=== PATIENT | female | born 1945 ===

== ENCOUNTER 2017-09-10 15:55 | Emergency (ER) | payer MEDICARE, OTHER ==
[2017-09-10 16:06] VITALS: TEMP 98
[2017-09-10] MEDS ORDERED: Sodium Chloride 0.9% 1,000 ML IV STA (16:43)
--- NOTE | 2017-09-10 17:18 | ED PDOC ---
Hyperglycemia/Hypoglycemia Time Seen by Provider: 09/10/17 16:12 Chief Complaint (Nursing): Weakness/Neurological Deficit Chief Complaint (Provider): Low blood sugar History Per: Patient, Family History/Exam Limitations: no limitations Onset/Duration Of Symptoms: Hrs (today) Current Symptoms Are (Timing): Still Present Current Diabetic Medications: Insulin Causative (Exacerbating) Factor(s): Ate Less Than Normal : The patient does not have any of the infectious symptoms listed except for those marked. Additional Complaint(s): Jovana Sullivan is a 71 year old female, with a past medical history of diabetes and hypercholesterolemia, who was brought to the emergency department by EMS accompanied by daughter for low blood sugar onset prior to arrival. Daughter reports patient's sugar was in the 40s when it was checked at home. She states that patient was very sleepy and didn't eat well today. Daughter also reports that she wasn't speaking at home. Patient is currently taking insulin for her diabetes and ambulates at home. Patient denies any other medical complaints. PMD: Ryan Dickinson Past Medical History Reviewed: Historical Data, Nursing Documentation, Vital Signs Vital Signs: Last Vital Signs Temp 98.0 F 09/10/17 15:59 Pulse 63 09/10/17 15:59 Resp 16 09/10/17 15:59 BP 158/75 H 09/10/17 15:59 Pulse Ox 97 09/10/17 15:59 - Medical History PMH: Diabetes, HTN, Hypercholesterolemia - Surgical History Surgical History: No Surg Hx - Family History Family History: States: Unknown Family Hx - Living Arrangements Living Arrangements: With Family - Social History Current smoker - smoking cessation education provided: No Alcohol: None Drugs: Denies - Immunization History Hx Tetanus Toxoid Vaccination: Yes Hx Influenza Vaccination: Yes Hx Pneumococcal Vaccination: Yes - Allergies Allergies/Adverse Reactions: Allergies Allergy/AdvReac Type Severity Reaction Status Date / Time aspirin Allergy RASH Verified 09/10/17 15:59 Review of Systems ROS Statement: Except As Marked, All Systems Reviewed And Found Negative Constitutional: Positive for: Other (low blood sugar) Gastrointestinal: Positive for: Other (decreased appetite) Neurological: Positive for: Other (Not speaking and sleepy) Physical Exam - Reviewed Nursing Documentation Reviewed: Yes Vital Signs Reviewed: Yes - Physical Exam Appears: Positive for: Non-toxic, No Acute Distress Head Exam: Positive for: ATRAUMATIC, NORMAL INSPECTION, NORMOCEPHALIC Skin: Positive for: Normal Color, Warm, Dry Eye Exam: Positive for: Normal appearance, Other (Patient is blind) Neck: Positive for: Painless ROM, Supple Cardiovascular/Chest: Positive for: Regular Rate, Rhythm. Negative for: Murmur Respiratory: Positive for: Normal Breath Sounds. Negative for: Respiratory Distress Gastrointestinal/Abdominal: Positive for: Normal Exam, Soft. Negative for: Tenderness Extremity: Positive for: Normal ROM (upper extremities). Negative for: Tenderness, Deformity, Swelling Neurologic/Psych: Positive for: Alert, Oriented (x3). Negative for: Motor/ Sensory Deficits - ECG O2 Sat by Pulse Oximetry: 97 (RA) Pulse Ox Interpretation: Normal Medical Decision Making Medical Decision Making: Initial Impression: Hypoglycemia Initial Plan: --EKG --CMP --Urine dipstick --CBC w/ differential --PTT --PT --Glucose, POC --Sodium Chloride 1,000 ml IV 100 mls.hr --Urinalysis --Reevaluation ~ Scribe Attestation: Documented by Boone Lugo, acting as a scribe for Wilma Mejia MD. Provider Scribe Attestation: All medical record entries made by the Scribe were at my direction and personally dictated by me. I have reviewed the chart and agree that the record accurately reflects my personal performance of the history, physical exam, medical decision making, and the department course for this patient. I have also personally directed, reviewed, and agree with the discharge instructions and disposition. Disposition - Disposition
[2017-09-10 17:50] LABS: BASO % 0.3 % (0.0-2.0); EOS % 0.3 % (0.0-4.0); HEMOGLOBIN 14.6 g/dL (12.0-16.0); LYMPH # 1.6 K/uL (1.0-4.3); LYMPH % 16.3 % (20.0-40.0); MEAN CELL VOLUME 81.6 fl (81.0-99.0); MEAN CORPUSCULAR HEMOGLOBIN 26.8 pg (27.0-31.0); MEAN CORPUSCULAR HGB CONC 32.8 g/dL (33.0-37.0); MONO # 0.2 K/uL (0.0-0.8); MONO % 2.1 % (0.0-10.0); NEUT # 7.9 K/uL (1.8-7.0); NRBC % 0.1 % (0.0-0.0); RBC 5.43 Mil/uL (3.80-5.20); RED CELL DISTRIBUTION WIDTH 13.7 % (11.5-14.5); WHITE BLOOD COUNT 9.8 K/uL (4.8-10.8)
[2017-09-10 17:58] LABS: INR 1.2 (0.9-1.2); PARTIAL THROMBOPLASTIN TIME 38.7 Seconds (25.6-37.1); PROTHROMBIN TIME 13.4 Seconds (9.8-13.1)
[2017-09-10 18:05] LABS: ALB/GLOB RATIO 0.9 (1.0-2.1); ALBUMIN 3.6 g/dL (3.5-5.0); ALT/SGPT 31 U/L (9-52); AST/SGOT 18 U/L (14-36); BLOOD UREA NITROGEN 16 mg/dl (7-17); CALCIUM 9.4 mg/dL (8.4-10.2); GFR AFRICAN-AMERICAN > 60; GFR NON-AFRICAN AMERICAN > 60
[2017-09-10 20:47] LABS: SQUAMOUS EPITHIAL < 1 /hpf (0-5); URINE BILIRUBIN NEGATIVE (NEGATIVE); URINE BLOOD SMALL (NEGATIVE); URINE CLARITY CLEAR (Clear); URINE COLOR YELLOW (YELLOW); URINE GLUCOSE (UA) 150 mg/dL (Normal); URINE HYALINE CAST 0-2 /hpf (0-2); URINE LEUKOCYTE ESTERASE NEG Leu/uL (Negative); URINE PROTEIN 100 mg/dL (NEGATIVE); URINE UROBILINOGEN 0.2-1.0 mg/dL (0.2-1.0)
--- NOTE | 2017-09-10 20:57 | ED PDOC ---
- Laboratory Results Result Diagrams: 09/10/17 17:38 09/10/17 17:38 - ECG O2 Sat by Pulse Oximetry: 100 Pulse Ox Interpretation: Normal Medical Decision Making Medical Decision Makin Patient endorsed to me by Dr. Mejia pending UA [id number] Patient reports she is feeling much better, reminded patient importance of eating while taking insulin. Advised patient to followup with her PMD Dr. Dickinson in 2- 3 days for checkup. Patient awake, alert, well appearing, steady gait upon discharge. Disposition - Clinical Impression Clinical Impression: Hypoglycemia - POA Present On Arrival: None - Disposition Referrals: Ryan Dickinson MD [Non-Staff] - Disposition: Routine/Home Disposition Time: 20:57 Condition: IMPROVED Instructions: Low Blood Sugar in People With Diabetes Forms: [facility] (Swedish) Print Language: BURUNDIAN
[2017-09-10 21:14] VITALS: BP 134/75; PULSE 80; RESP 16; O2SAT 98
--- NOTE | 2017-09-11 10:39 | CARD ---
APPROVED REPORT EKG Measurement Heart [id number] <Conclusion> Sinus rhythm Unacceptable base line artefacts Please repeat
== END 2017-09-10 21:28 | disposition home or self-care (01) ==
LOC: H.ER 15:55
DX: E11.65 Type 2 diabetes mellitus with hyperglycemia (principal); E78.00 Pure hypercholesterolemia, unspecified; I10 Essential (primary) hypertension
CPT/HCPCS: 80053; 81003; 82948; 85025; 85610; 85730; 93005; 99284; J7040

== ENCOUNTER 2018-08-31 17:38 | Emergency (ER) | payer MEDICARE, OTHER ==
[2018-08-31] MEDS ORDERED: Sodium Chloride 0.9% 1,000 ML IV STA (18:05)
--- NOTE | 2018-08-31 18:24 | ED PDOC ---
HPI: Altered Mental Status Time Seen by Provider: 08/31/18 17:45 Chief Complaint (Nursing): Altered Mental Status Chief Complaint (Provider): hypoglycemia History Per: Patient, EMS, [employer] History/Exam Limitations: Clinical Condition Onset/Duration Of Symptoms: Unknown Onset Of Symptoms: Cannot Confirm Onset Description Of Symptoms: Not At Baseline Usual Baseline: Alert Oriented Exacerbating Factor(s): Diabetic Additional Complaint(s): 72yo female arrives after family found her confused and lethargic, EMS found accucheck 37, given 2 Amps D50 but remained sluggish thereafter. Arrives ED awake, alert, but slow. Per family takes humalog 10mg with meals and pharmacist confirmed lantus 45u at night, today did not eat much. Per family no recent illness, fever, vomiting, focal weakness or headache. PMD Alok Past Medical History Reviewed: Historical Data, Nursing Documentation, Vital Signs Vital Signs: Last Vital Signs Temp 93 F L 08/31/18 17:45 Pulse 61 08/31/18 17:45 Resp 18 08/31/18 17:45 BP 190/86 H 08/31/18 17:45 Pulse Ox 96 08/31/18 17:45 - Medical History PMH: Diabetes, HTN, Hypercholesterolemia - Family History Family History: States: Unknown Family Hx - Living Arrangements Living Arrangements: With Family - Social History Current smoker - smoking cessation education provided: No - Immunization History Hx Tetanus Toxoid Vaccination: Yes Hx Influenza Vaccination: Yes Hx Pneumococcal Vaccination: Yes - Home Medications Home Medications: Ambulatory Orders Medication Instructions Recorded Alendronate [Fosamax] 70 mg PO WE 08/31/18 Ascorbic Acid [Vitamin C 500 mg 1 tab PO DAILY 08/31/18 Tab] Atorvastatin [Lipitor] 40 mg PO DAILY 08/31/18 Calcium Carbonate/Vitamin D3 1 tab PO BID 08/31/18 [[place] 500-Vit D3 200 Tablet] Carvedilol [Coreg] 25 mg PO Q12 08/31/18 Clopidogrel [Plavix] 75 mg PO DAILY 08/31/18 Dorzolamide 2%/Timolol 0.5% 1 drop EACHEYE Q12 08/31/18 [Cosopt 2%-0.5% Opht] Ergocalciferol (Vitamin D2) 50,000 unit PO SAT 08/31/18 [Vitamin D2] Gabapentin [Neurontin] 300 mg PO Q8 08/31/18 Insulin Glargine, Recombina 45 unit SC HS 08/31/18 [Lantus] Insulin Lispro [humALOG] 16 unit SC ACTID 08/31/18 Isosorbide Mononitrate ER [Imdur 30 mg PO DAILY 08/31/18 ER] Sertraline [Zoloft] 100 mg PO DAILY 08/31/18 - Allergies Allergies/Adverse Reactions: Allergies Allergy/AdvReac Type Severity Reaction Status Date / Time aspirin Allergy RASH Verified 08/31/18 17:45 Review of Systems Review Of Systems: ROS cannot be obtained secondary to pt's inabilty to answer questions. Physical Exam - Reviewed Nursing Documentation Reviewed: Yes Vital Signs Reviewed: Yes - Physical Exam Appears: Positive for: Non-toxic (slow) Head Exam: Positive for: ATRAUMATIC, NORMAL INSPECTION, NORMOCEPHALIC Skin: Positive for: Normal Color, Warm, DRY Eye Exam: Positive for: EOMI, Normal appearance, PERRL ENT: Positive for: Normal ENT Inspection Neck: Positive for: Normal, Painless ROM Cardiovascular/Chest: Positive for: Regular Rate, Rhythm Respiratory: Positive for: CNT, Normal Breath Sounds Gastrointestinal/Abdominal: Positive for: Soft. Negative for: Tenderness, Guarding Back: Positive for: Normal Inspection Extremity: Positive for: Normal ROM Neurological/Psych: Positive for: Awake, Alert, Normal Tone, Symmetric/Intact Strength, Other (mentation intact but slow to respond) - Laboratory Results Result Diagrams: 08/31/18 19:02 08/31/18 19:02 - ECG O2 Sat by Pulse Oximetry: 96 Medical Decision Making Medical Decision Making: workup for hypoglycemia initiated labs, EKG, frequent accuchecks Time: 1854 -- Patient endorsed to Dr. Candelaria, pending re-evaluation and possible admission. _ ___ Scribe Attestation: Documented by Sarah Zaidi, acting as a scribe forJohn J Deisy III, DO. Provider Scribe Attestation: All medical record entries made by the Scribe were at my direction and personally dictated by me. I have reviewed the chart and agree that the record accurately reflects my personal performance of the history, physical exam, medical decision making, and the department course for this patient. I have also personally directed, reviewed, and agree with the discharge instructions and disposition. Disposition - Clinical Impression Clinical Impression: Altered mental status, Hypoglycemia - Patient ED Disposition Is Patient to be Admitted: Transfer of Care - Disposition Disposition: Transfer of Care Disposition Time: 18:55 Condition: FAIR Forms: [employer] (Japanese) Patient Signed Over To: Mounika Candelaria
[2018-08-31 19:07] LABS: BASO % 0.3 % (0.0-2.0); EOS # 0.1 K/uL (0.0-0.7); HEMOGLOBIN 12.8 g/dL (12.0-16.0); LYMPH # 1.8 K/uL (1.0-4.3); LYMPH % 15.4 % (20.0-40.0); MEAN CELL VOLUME 83.5 fl (81.0-99.0); MEAN CORPUSCULAR HEMOGLOBIN 26.4 pg (27.0-31.0); MEAN CORPUSCULAR HGB CONC 31.6 g/dL (33.0-37.0); MEAN PLATELET VOLUME 11.5 fl (7.2-11.7); MONO # 0.5 K/uL (0.0-0.8); NEUT # 9.3 K/uL (1.8-7.0); NEUT % 79.3 % (50.0-75.0); RBC 4.85 Mil/uL (3.80-5.20); WHITE BLOOD COUNT 11.8 K/uL (4.8-10.8)
[2018-08-31 19:13] LABS: ALB/GLOB RATIO 0.9 (1.0-2.1); ALT/SGPT 25 U/L (9-52); AST/SGOT 21 U/L (14-36); BLOOD UREA NITROGEN 15 mg/dl (7-17); CALCIUM 9.6 mg/dL (8.4-10.2); GFR NON-AFRICAN AMERICAN > 60
--- NOTE | 2018-08-31 20:26 | ED PDOC ---
- Laboratory Results Result Diagrams: 08/31/18 19:02 08/31/18 19:02 Lab Results: Troponin I < 0.0120 ng/mL (0.00-0.120) 08/31/18 19: Total Bilirubin 0.3 mg/dl (0.2-1.3) 08/31/18 19:02 AST 21 U/L (14-36) 08/31/18 19: ALT 25 U/L (9-52) 08/31/18 19: Alkaline Phosphatase 106 U/L (38-126) 08/31/18 19: Total Protein 8.5 G/DL (6.3-8.2) H 08/31/18 19: Albumin 4.0 g/dL (3.5-5.0) 08/31/18 19: Globulin 4.5 gm/dL (2.2-3.9) H 08/31/18 19:02 Albumin/Globulin Ratio 0.9 (1.0-2.1) L 08/31/18 19:02 - ECG O2 Sat by Pulse Oximetry: 96 (RA) Pulse Ox Interpretation: Normal Medical Decision Making Medical Decision Making: Time: 1899 -- Patient endorsed to me by Dr. Olivas, pending re-evaluation and possible admi ssion. Time: 2054 -- Repeat Accucheck is 122. On re-evaluation, patient reports of feeling much be tter. Patient ate a tray of food while in the ED. -- Labs reviewed and demonstrate slightly elevated WBC, pending urine results at this time. Time: 2219 -- Urine results are normal. pt back to baseline mental status lane as per alissaitone. they want to take her home. she is isntructed to eat when she takes her insulin and follow up with pcp. Patient is stable for discharge home. Scribe Attestation: Documented by Sarah Zaidi, acting as a scribe forMounika Candelaria MD. Provider Scribe Attestation: All medical record entries made by the Scribe were at my direction and personally dictated by me. I have reviewed the chart and agree that the record accurately reflects my personal performance of the history, physical exam, medical decision making, and the department course for this patient. I have also personally directed, reviewed, and agree with the discharge instructions and disposition. Disposition Counseled Patient/Family Regarding: Studies Performed, Diagnosis - Clinical Impression Clinical Impression: Altered mental status, Hypoglycemia - POA Present On Arrival: None - Disposition Disposition: Routine/Home Disposition Time: 22:20 Condition: IMPROVED Additional Instructions: follow up with your doctor in 1-2 days make sure to eat before insulin return to the ED with any worsening or concerning symptoms Instructions: Low Blood Sugar, Adult (DC) Forms: [facility] (Citizen Of [place]), [facility] (Icelandic) Print Language: CENTRAL AFRICAN
[2018-08-31 20:38] VITALS: BP 153/78; PULSE 63; RESP 17; TEMP 97.6
[2018-08-31 21:00] VITALS: O2SAT 96
[2018-08-31 21:38] LABS: URINE BILIRUBIN NEGATIVE (NEGATIVE); URINE BLOOD NEGATIVE (NEGATIVE); URINE CLARITY CLEAR (Clear); URINE COLOR STRAW (YELLOW); URINE GLUCOSE (UA) 50 mg/dL (NEGATIVE); URINE LEUKOCYTE ESTERASE NEG Leu/uL (Negative); URINE PROTEIN 100 mg/dL (NEGATIVE); URINE UROBILINOGEN 0.2-1.0 mg/dL (0.2-1.0)
--- NOTE | 2018-09-01 11:26 | CARD ---
APPROVED REPORT Date of service: 08/31/2018 EKG Measurement Heart [id number] <Conclusion> Sinus bradycardia Otherwise normal ECG
== END 2018-08-31 22:35 | disposition home or self-care (01) ==
LOC: H.ER 17:38
DX: E11.649 Type 2 diabetes mellitus with hypoglycemia without coma (principal); E78.00 Pure hypercholesterolemia, unspecified; I10 Essential (primary) hypertension; Z79.4 Long term (current) use of insulin
CPT/HCPCS: 80053; 81003; 82948; 83735; 84100; 84484; 85025; 93005; 99285; J7030